=== PATIENT | female | born 1940 | race Caucasian/White ===

== ENCOUNTER → 2016-11-14 | Outpatient (CLI) | payer OTHER ==
[~2016-11-14] MED LIST: ATV1 PO; BCTCR/30 EXT; CALC0.5C17 PO; CALC200S6; CALCTAB7 PO; DNSIS60 SQ; GLUCTAB7 PO; HYDR-5688 PO; HYDR25TA4 PO; KRIL1CAP20 PO; MAGN400T24 PO; METO50TA16 PO; MINO100C22 PO; MULT-663 PO; POTA-327 PO; RED1CAP5 PO; RED600TA PO; RXC5 PO; [UNRECOGNIZED DRUG - CODE] PO
[2016-11-14 13:49] LABS: CALCIUM 9.9 mg/dl (8.5-10.1); CREATININE 0.63 mg/dl (0.60-1.20)
[2016-11-14 14:11] LABS: CALCIUM URINE 13.8 mg/dl
== END | disposition home or self-care (01) ==
LOC: C.LABMFLN 09:12
PROVIDERS: ATTEND Family Medicine
DX: E83.42 Hypomagnesemia (principal); M81.0 Age-related osteoporosis without current pathological fracture; E05.90 Thyrotoxicosis, unspecified without thyrotoxic crisis or storm; E04.2 Nontoxic multinodular goiter

== ENCOUNTER → 2016-12-18 | Outpatient (CLI) | payer OTHER ==
[~2016-12-18] MED LIST changes: +CALC0.5C PO; -CALC0.5C17 PO
[2016-12-18 13:58] LABS: ALT/SGPT 24 U/L (12-78); BLOOD UREA NITROGEN 17 mg/dl (7-18); CARBON DIOXIDE 27 mmol/L (21-32); CHLORIDE 105 mmol/L (98-107); CHOLESTEROL 229 mg/dl (0-200); CREATININE 0.67 mg/dl (0.60-1.20); GLUCOSE 121 mg/dl (70-99); MAGNESIUM 2.3 mg/dl (1.8-2.4); POTASSIUM 3.6 mmol/L (3.5-5.1); SODIUM 142 mmol/L (136-145); TRIGLYCERIDES 105 mg/dl (0-150); VERY LOW DENSITY LIPOPROT CALC 21 mg/dl
[2016-12-18 14:01] LABS: AST/SGOT 13 U/L (15-37); CHOLESTEROL/HDL RATIO 3.2; HDL CHOLESTEROL 71 mg/dl; LDL CHOLESTEROL CALCULATED 137 mg/dl
[2016-12-18 15:07] LABS: CALCIUM 9.6 mg/dl (8.5-10.1)
== END | disposition home or self-care (01) ==
LOC: C.LABMFLN 08:28
PROVIDERS: ATTEND Physician Assistant
DX: M85.80 Other specified disorders of bone density and structure, unspecified site (principal); I10 Essential (primary) hypertension; E78.00 Pure hypercholesterolemia, unspecified

== ENCOUNTER → 2017-01-14 | Outpatient (CLI) | payer OTHER ==
--- NOTE | 2017-01-14 12:29 | DIAGNOSTIC IMAGING REPORT ---
MRI LUMBAR SPINE W/O CONTRAST CLINICAL HISTORY: Lumbar spine pain. History disturbance. Retrolisthesis. TECHNIQUE: Sagittal and axial T1, T2 and STIR images were obtained. COMPARISON STUDY: Conventional radiographic study dated 03/23/2015 OBSERVATIONS: There are postsurgical changes of an L2-S1 pedicle screw posterior spinal fusion. There are postsurgical changes of discectomies and interbody fusions at the L3-4, and L4-5 levels. There are degenerative changes with endplate erosive disease at the T11-12 level. There is an L1 focal fatty rest/hemangioma. There are no areas of marrow replacement to indicate metastatic disease. L1-2: There is mild retrolisthesis of L1 on L2. There is a circumferential disc bulge present. There is mild spinal stenosis. L2-3: Postlaminectomy changes are present. There is artifact from pedicle screw fixation. There is no significant spinal or foraminal stenosis. L3-4: There are postsurgical changes of a discectomy and interbody fusion. There are postlaminectomy changes. There is no significant spinal or foraminal stenosis L4-5: There is a grade 1 spinal listhesis of L4 and L5. There are postsurgical changes of a discectomy and interbody fusion. There are postlaminectomy changes. There is no significant spinal or foraminal stenosis L5-S1: There is a mild circumferential disc bulge. There is no significant spinal or foraminal stenosis. The conus medullaris and cauda equina appear normal. IMPRESSION: 1. Extensive postsurgical changes as described above. There is a disc bulge and mild retrolisthesis of L1 on L2. This results in mild spinal stenosis. 2. No evidence of significant spinal stenosis at the L2-3 through L5-S1 levels 3. Advanced degenerative change with endplate erosive change the T11-T12 level. Sagittal images suggest a disc bulge at this level with minor secondary spinal canal narrowing Electronically signed by: Kun Caceers M.D. 01/14/2017 12:27 PM Dictated Date/Time: 01/14/2017 12:21 PM
--- NOTE | 2017-01-14 12:46 | DIAGNOSTIC IMAGING REPORT ---
THORACIC SPINE MRI HISTORY: Thoracic pain. TECHNIQUE: Multiplanar multisequence MRI of the thoracic spine was performed without the use of contrast. COMPARISON: None. FINDINGS: Mild dextroscoliosis of the thoracic spine. The alignment remains intact. There is severe disc space narrowing with partial fusion of the anterior T11-T12 level. Mild to moderate disc space narrowing seen within the mid to lower thoracic spine. The thoracic spinal cord demonstrates a normal signal intensity. No acute fractures within the thoracic spine. Paraspinal soft tissues are unremarkable. Small focal posterior bony projection at the T5 vertebral body which results in mild anterior cord deformity. There are few scattered small focal disc protrusions within the mid to lower thoracic spine without significant central canal narrowing. Some these this protrusions demonstrate minimal anterior cord deformity. Small broad-based posterior disc bulge at T10-11 resulting in mild central canal narrowing. No significant neural foraminal narrowing within the thoracic spine. There are 2 hypointense foci within the T8 vertebral body and within the left T8 transverse process which measure up to 1 cm. These favor bone islands in the absence of a known malignancy. Focal kyphotic deformity at the T11-T12 level with associated mild central canal narrowing. A few T2 hyperintense foci within the liver favor cysts. IMPRESSION: 1. No fracture or subluxation within the thoracic spine. 2. Partial fusion of the T11-T12 vertebral bodies which results in a focal kyphotic deformity at this location and mild central canal narrowing. 3. Mild to moderate degenerative disc disease as described above. Electronically signed by: Iván Thrasher M.D. 01/14/2017 12:45 PM Dictated Date/Time: 01/14/2017 12:34 PM
== END | disposition home or self-care (01) ==
LOC: C.MRIBC 10:30
PROVIDERS: ATTEND Orthopaedic Surgery Orthopaedic Surgery of the Spine
DX: M43.10 Spondylolisthesis, site unspecified (principal); M51.26 Other intervertebral disc displacement, lumbar region; M47.814 Spondylosis without myelopathy or radiculopathy, thoracic region; M81.0 Age-related osteoporosis without current pathological fracture; E05.90 Thyrotoxicosis, unspecified without thyrotoxic crisis or storm

== ENCOUNTER → 2017-01-14 | Outpatient (CLI) | payer OTHER ==
[2017-01-14 14:40] LABS: CALCIUM 9.4 mg/dl (8.5-10.1)
[2017-01-14 14:54] LABS: THYROID STIMULATING HORMONE 1.54 uIu/ml (0.300-4.500)
== END | disposition home or self-care (01) ==
LOC: C.LABMFLN 08:32
PROVIDERS: ATTEND Internal Medicine Endocrinology, Diabetes & Metabolism
DX: M81.0 Age-related osteoporosis without current pathological fracture (principal); E05.90 Thyrotoxicosis, unspecified without thyrotoxic crisis or storm

== ENCOUNTER → 2017-02-18 | Outpatient (CLI) | payer OTHER ==
[~2017-02-18] MED LIST changes: -ATV1 PO
[2017-02-18 15:05] LABS: THYROID STIMULATING HORMONE 3.85 uIu/ml (0.300-4.500)
== END | disposition home or self-care (01) ==
LOC: C.LABMFLN 09:18
PROVIDERS: ATTEND Internal Medicine Endocrinology, Diabetes & Metabolism
DX: M81.0 Age-related osteoporosis without current pathological fracture (principal); E05.90 Thyrotoxicosis, unspecified without thyrotoxic crisis or storm

== ENCOUNTER 2017-02-25 05:46 | Inpatient (IN) | payer OTHER ==
--- NOTE | 2017-02-04 12:00 | DIAGNOSTIC IMAGING REPORT ---
CHEST 2 VIEWS ROUTINE CLINICAL HISTORY: Preoperative evaluation. COMPARISON STUDY: Chest radiograph March 23, 2015. FINDINGS: Lumbar spine fusion hardware is partially imaged. There is no pneumothorax or pleural effusion. Linear left lung opacity favors atelectasis or scarring. There is no evidence of pulmonary edema. Cardiac size is at the upper limits of normal. IMPRESSION: No acute cardiopulmonary findings. Electronically signed by: Haresh Caro M.D. 02/04/2017 11:59 AM Dictated Date/Time: 02/04/2017 11:58 AM
[2017-02-04 12:10] LABS: BASO % 0.3 %; BASO ABS # 0.02 K/uL (0-0.2); COMPLETE YES; EOS % 2.3 %; HEMATOCRIT 41.5 % (37-47); IG% 0.4 %; LYMPH % 28.3 %; MEAN CELL VOLUME 88.9 fL (80-100); MEAN CORPUSCULAR HEMOGLOBIN 29.8 pg (25-34); MEAN CORPUSCULAR HGB CONC 33.5 g/dl (32-36); MEAN PLATELET VOLUME 10.8 fL (7.4-10.4); MONO % 11.5 %; NEUT % 57.2 %; PLATELET COUNT 305 K/uL (130-400); RED BLOOD COUNT 4.67 M/uL (4.2-5.4); WHITE BLOOD COUNT 7.07 K/uL (4.8-10.8)
[2017-02-04 12:25] LABS: CALCIUM 10.2 mg/dl (8.5-10.1)
[2017-02-04 12:26] LABS: BLOOD UREA NITROGEN 22 mg/dl (7-18); BUN/CREATININE RATIO 27.2 (10-20); CARBON DIOXIDE 28 mmol/L (21-32); CHLORIDE 103 mmol/L (98-107); CREATININE 0.79 mg/dl (0.60-1.20); GLUCOSE 94 mg/dl (70-99); POTASSIUM 3.8 mmol/L (3.5-5.1); SODIUM 141 mmol/L (136-145)
[2017-02-04 13:25] LABS: URINE APPEARANCE CLOUDY (CLEAR); URINE BILIRUBIN NEG (NEG); URINE COLOR YELLOW; URINE EPITHELIAL CELL AUTO >30 /lpf (0-5); URINE NITRITE NEG (NEG); URINE PH 7.5 (4.5-7.5); URINE SPECIFIC GRAVITY 1.018 (1.000-1.030); UROBILINOGEN NEG (NEG)
[2017-02-04 13:41] LABS: MANUAL MICROSCOPIC REQUIRED? NO; REVIEW REQ? NO
[2017-02-06 09:15] VITALS: BMI 32.0
[~2017-02-25] VITALS: Ht 152.4 cm; Wt 75.0 kg
[2017-02-25] VITALS (8 sets, daily range): BP systolic 96–177; BP diastolic 49–73; PULSE 46–66; TEMP 36.4–36.6; O2SAT 94–99; Ht 152.4 cm; Wt 75.0 kg
[~2017-02-25 05:46] MED LIST changes: -CALC0.5C PO; +CALC0.5C17 PO; -RXC5 PO
[2017-02-25] MEDS ORDERED: CEFAZOLIN 1000MG/55 ML D5W IV SCH (06:00)
[2017-02-25] MEDS ORDERED: LACTATED RINGER'S 1000ML 1,000 ML IV SCH (06:00)
[2017-02-25] MEDS ORDERED: LIDOCAINE HCL 2% 2 ML VIAL (20MG/ML) ONE (06:52)
[2017-02-25] MEDS ORDERED: FENTANYL CITRATE INJ 50 MCG/1 ML 2 ML VIAL ONE (06:52)
[2017-02-25] MEDS ORDERED: PROPOFOL IV EMULSION 10 MG/ML 20 ML VIAL IV ONE (06:52)
[2017-02-25] MEDS ORDERED: PHENYLEPHRINE HCL INJ 10 MG/ML VIAL ONE (06:53)
[2017-02-25] MEDS ORDERED: ROCURONIUM BROMIDE 10 MG/ML 5 ML VIAL ONE (06:53)
[2017-02-25] MEDS ORDERED: ONDANSETRON INJ 2 MG/ML 2 ML VIAL ONE (06:53)
[2017-02-25] MEDS ORDERED: GLYCOPYRROLATE INJ 0.2 MG/ML VIAL ONE (06:53)
[2017-02-25] MEDS ORDERED: BACITRACIN 50000 UNIT VIAL ONE (06:59)
[2017-02-25] MEDS ORDERED: SODIUM CHLORIDE 0.9% PF 50 ML VIAL ONE (06:59)
[2017-02-25] MEDS ORDERED: BUPIVACAINE/EPINEPHRINE 0.25% 1:200,000 30 ML VIAL ONE (07:00)
[2017-02-25] MEDS ORDERED: HYDROmorphone INJ 2 MG/ML SYR/VIAL ONE (07:01)
[2017-02-25] MEDS ORDERED: BUPIVACAINE/EPINEPHRINE 0.5% MPF 1:200,000 10 ML VIAL ONE (07:09)
[2017-02-25] MEDS ORDERED: BUPIVACAINE/EPINEPHRINE 0.5% MPF 1:200,000 30 ML VIAL ONE (07:19)
--- NOTE | 2017-02-25 07:26 | History & Physical Bridge Note ---
H&P Re-Evaluation Bridge Note: I have examined the patient, reviewed the History & Physical and in the interval since the performance of the History & Physical I have noted the following changes of clinical significance: No changes noted
--- NOTE | 2017-02-25 07:28 | History and Physical ---
History & Physical Date Feb 25, 2017. Chief Complaint back and leg pain History of Present Illness The patient is a 76 year old female with complaints of Past Medical/Surgical History Medical Problems: (1) Benign Hypertension (2) Right rotator cuff tear Additional History Hepatic Disease: No Endocrine Disorder: No Kidney Disease: No Hypertension: No Heart Disease: No Bleeding Tendencies: No Infectious Diseases: No Allergies Coded Allergies: Adhesives (Verified Allergy, Intermediate, pruritis, redness, rash, ) Influenza Vaccines (Verified Allergy, Unknown, per records , 02/25/17) NSAIDs (Verified Allergy, Unknown, porphyria, 02/25/17) Statins (Verified Adverse Reaction, Mild, MUSCLE ACHES,, 02/25/17) Home Medications Scheduled Calcitonin ([place]) (Calcitonin [place]), 1 DOSE NA QAM Calcitriol (Calcitriol), 1 CAP PO BID Calcium Carbonate-Vitamin D W/ (Caltrate 600 Plus), 1 TAB PO BID Denosumab (Prolia), 1 DOSE SQ u8mnbsgu Ciqvcaawnuy-Erbngimwgte-Eec C- (Glucosamine Chondroitin), 1 TAB PO BID Hydrochlorothiazide (Hctz), 25 MG PO QAM Krill Oil ([facility] [place]-3 Krill Oil 300 300 mg), 1 CAP PO BID Magnesium Oxide (Mag-Oxide), 400 MG PO BID Methimazole (Methimazole), 2 TAB PO QAM Metoprolol Tartrate (Lopressor) (Lopressor), 0.5 TAB PO BID Multiple Minerals W/ Vitamins (Citracal Plus), 2 TAB PO QAM Mupirocin 2% (Bactroban 2%), 1 APPLN EXT UD Red Yeast Rice Extract (Red Yeast Rice), 600 MG PO QPM Red Yeast Rice Extract (Red Yeast Rice), 1,200 MG PO QAM Scheduled PRN Hydrocodone/Acetaminophen 5MG/325MG ([place] 5MG/325MG), 2 TAB PO Q4H PRN for Pain Physical Examination Skin: warm/dry, no rash Eyes: normal inspection, EOMI, sclerae normal ENT: normal ENT inspection, pharynx normal Head: normocephalic, atraumatic Neck: supple, no adenopathy, trachea midline Respiratory/Chest: lungs clear, normal breath sounds, no respiratory distress Cardiovascular: regular rate, rhythm, no edema, no murmur Abdomen / GI: normal bowel sounds, non tender Back: normal inspection Extremities: normal inspection, normal range of motion Neurologic/Psych: no motor/sensory deficits, alert, normal reflexes, oriented x 3 Diagnosis spinal stenosis Plan of Treatment decompression L1-2, fusion T9-L2, removal inst. L2
[2017-02-25] MEDS ORDERED: ATROPINE SULFATE 0.1 MG/ML 5ML SYR IV PRN (08:30)
[2017-02-25] MEDS ORDERED: ONDANSETRON INJ 2 MG/ML 2 ML VIAL IV PRN ×2 (08:30→10:00)
[2017-02-25] MEDS ORDERED: EpHEDrine SULFATE INJ 50 MG/ML AMP IV PRN (08:30)
[2017-02-25] MEDS ORDERED: BUPIVACAINE/EPINEPHRINE 0.5% MPF 1:200,000 30 ML VIAL INJ ONE (08:30)
[2017-02-25] MEDS: SODIUM CHLORIDE 0.9% 1000ML 1,000 ML IV SCH ×2 (09:49→23:56)
[2017-02-25] MEDS ORDERED: SODIUM CHLORIDE 0.9% 1000ML 1,000 ML IV SCH (09:49)
--- NOTE | 2017-02-25 09:49 | [facility] Post Operative Brief Note ---
Immediate Operative Summary Operative Date Feb 25, 2017. Pre-Operative Diagnosis Spinal Stenosis Post-Operative Diagnosis Spinal Stenosis Procedure(s) Performed decomp fusion L1-[address] Calvin Hazardous Waste Technician Surgeon(s) Lisette Salomon PA-C Estimated Blood Loss 250 Findings stenosis Specimens none per surgeon
--- NOTE | 2017-02-25 09:53 | DIAGNOSTIC IMAGING REPORT ---
INTRAOPERATIVE RADIOGRAPHS CLINICAL HISTORY: L2 hardware removal. T9-L2 decompression and spinal fusion. Fluoroscopy time: 27 seconds. FINDINGS: 2 spot fluoroscopic views of the thoracolumbar junction are presented. There is evidence of multilevel laminectomy and posterior fusion identified. The exact levels cannot be determined on this examination. The orthopedic hardware is intact as imaged. IMPRESSION: Intraoperative images from spinal fusion at the thoracolumbar junction as above. See operative report for detailed findings. Electronically signed by: Carl Kramer M.D. 02/25/2017 9:52 AM Dictated Date/Time: 02/25/2017 9:50 AM
[2017-02-25] MEDS ORDERED: FLOSEAL HEMOSTATIC MATRIX 10ML TOP ONE (09:54)
[2017-02-25] MEDS ORDERED: ACETAMINOPHEN IV 100 ML IV PRN (10:00)
[2017-02-25] MEDS ORDERED: HYDROmorphone HCL 0.5MG/ML 50 ML CASSETTE IV PRN (10:00)
[2017-02-25] MEDS ORDERED: BISACODYL 10 MG SUPP PR PRN (10:00)
[2017-02-25] MEDS ORDERED: ALUMINUM/MAGNESIUM SUSP 30 ML UDC PO PRN (10:00)
[2017-02-25] MEDS ORDERED: DO NOT ADMINISTER PNEUMOCOCCAL VACCINE PRN ×2 (10:00)
[2017-02-25] MEDS ORDERED: DO NOT ADMINISTER FLU VACCINE PRN ×3 (10:00)
[2017-02-25] MEDS ORDERED: NALOXONE HCL 0.4 MG/1 ML VIAL/CARP IV PRN ×2 (10:00)
[2017-02-25] MEDS ORDERED: METOCLOPRAMIDE HCL INJ 5 MG/ML 2 ML VIAL IV PRN (10:00)
[2017-02-25] MEDS ORDERED: hydrOXYzine HCL 25 MG TAB PO PRN (10:00)
[2017-02-25] MEDS ORDERED: FAMOTIDINE 20 MG TAB PO PRN (10:00)
[2017-02-25] MEDS ORDERED: DC PCA PRN (10:00)
[2017-02-25] MEDS ORDERED: SOD PHOSPHATE/SOD BIPHOSPHATE ENEMA 132 ML BTL PR PRN (10:00)
[2017-02-25] MEDS ORDERED: LORAZEPAM INJ 0.5 MG in SYRINGE 0 ML IV PRN (10:00)
[2017-02-25] MEDS ORDERED: MAGNESIUM HYDROXIDE SUSP 30 ML UDC PO PRN (10:00)
[2017-02-25] MEDS ORDERED: LORAZEPAM 0.5 MG TAB PO PRN (10:00)
[2017-02-25] MEDS ORDERED: PROMETHAZINE HCL INJ 12.5 MG in SODIUM CHLORIDE 0.9% 50ML 50 ML IV PRN (10:00)
[2017-02-25] MEDS ORDERED: ACETAMINOPHEN 500 MG TAB PO PRN (10:00)
[2017-02-25] MEDS ORDERED: HYDROmorphone HCL 0.5MG/ML 50 ML CASSETTE ONE (10:13)
[2017-02-25] MEDS: FENTANYL CITRATE INJ 50 MCG/1 ML 2 ML VIAL IV PRN ×4 (10:14→10:30)
[2017-02-25] MEDS: HYDROmorphone INJ 1 MG/ML SYR IV PRN ×4 (10:27→10:45)
--- NOTE | 2017-02-25 10:32 | OPERATIVE REPORT ---
DATE OF OPERATION: 02/25/2017 PREOPERATIVE DIAGNOSIS: Spinal stenosis. POSTOPERATIVE DIAGNOSIS: Same. PROCEDURE PERFORMED: 1. Removal of posterior instrumentation, L2. 2. Exploration of fusion L2-3. 3. Lumbar decompression, medial facetectomies, foraminotomies T12, L1, L1-2. 4. Posterior spinal fusion, T12-L2. 5. Posterior segmental instrumentation using Medicrea rods and screws, T12-L1. 6. Interbody fusion, L1-2. 7. Placement of PEEK cage, 10 x 22 mm, at L1-2. 8. Placement of locally harvested morselized autograft posterior gutters. 9. Placement of Infuse collagen sponge combined with Mastergraft in posterior gutters and DBM in the interbody space. SURGEON: Dr. Mauricio Calvin. SNOW RANGER: Lisette Salomon PA-C. Due to the complex nature of the procedure, the entire surgery was performed with the teacher assistant of JOEL Hahn. The rehab assistant, under direct supervision, was involved in the actual performance of all aspects of the surgical procedure including hemostasis, tissue retraction and incision, instrument management, patient positioning, and wound closure. ANESTHESIA: General. DISPOSITION: The patient awakened and taken to PACU in stable condition. HISTORY OF PATIENT'S PROBLEMS: This is a 76-year-old female, who presents with the above-mentioned diagnosis after failing an extensive course of nonoperative care, elected to undergo the above-mentioned procedure. Risks, benefits, pros, cons, and alternatives were outlined in detail preoperatively. DESCRIPTION OF PROCEDURE: The patient was met with preoperatively, the case discussed and all questions were addressed. At that point, the patient was taken back to the operative suite and after undergoing successful general endotracheal intubation by the department of anesthesia, was placed in prone position on Ferny table atop a Kurtis frame. All bony prominences were well padded and the eyes were inspected to ensure there was no external pressure placed upon them. At this point, the lumbar spine was prepped and draped in normal sterile fashion. Sharp dissection, with the assistance of Bovie cautery, performed down to and exposing the lamina and transverse processes of T12, L1, L2 and L3. I then proceeded to remove the hardware at L2, exploring the fusion mass at L2-3, noting a significant bone graft in the posterior gutters. I then performed a complete laminectomy of L1, partial laminectomy of T12, addressing severe lateral recess stenosis as well as bilateral neural foraminal stenosis at L1-2. This did require bilateral facetectomies to complete the decompression. After this was complete, pedicle screws were placed in T12, L1 bilaterally with the assistance of fluoroscopy and through a transforaminal approach on the left, a complete discectomy of L1-2 was performed, endplates curetted to subcortical bleeding bone and a 10 x 22 mm PEEK cage filled with DBM tapped in position. Appropriate size rods were then placed. We did use barrel connectors to connect to the new rods with the previously placed rods. The rods were then locked into position bilaterally and transverse processes and lamina of T12, L1, L2 and L3 were burred to subcortical bleeding bone. Infuse collagen sponge combined with Mastergraft and locally harvested morselized autograft was placed in the posterior gutters. A 15 round SYLWIA drain was placed. The incision was closed with 1-0 Vicryl in the fascia, 2-0 Vicryl subcutaneously, 4-0 Monocryl for final skin closure. Steri-Strips and sterile dressing placed. The patient was awakened and taken to PACU in stable condition. I attest to the content of the Intraoperative Record and any orders documented therein. Any exception s are noted below.
[2017-02-25] MEDS ORDERED: HydrALAZINE HCL 20 MG/ML VIAL ONE (10:48)
[2017-02-25] MEDS ORDERED: HydrALAZINE HCL 20 MG/ML VIAL IV. STA (10:53)
--- NOTE | 2017-02-25 11:13 | Anesthesiology Progress Note ---
Anesthesia Post Op Note Date & Time Feb 25, 2017 at 11:13 Vital Signs Pain Intensity: 5 Vital Signs Past 12 Hours Date Time Temp Pulse Resp B/P (MAP) Pulse Ox O2 Delivery O2 Flow Rate FiO2 02/25/17 11:05 56 16 164/67 97 Nasal Cannula 2 02/25/17 10:55 56 16 158/61 100 Mask 2 02/25/17 10:45 56 16 184/77 100 Mask 2 02/25/17 10:35 56 16 184/77 100 Mask 2 02/25/17 10:25 56 16 195/76 100 Mask 10 02/25/17 10:15 56 15 189/82 100 Mask 10 02/25/17 10:05 36.1 54 12 214/78 100 Mask 10 02/25/17 06:45 36.6 46 20 177/73 97 Room Air Notes Mental Status: alert / awake / arousable, participated in evaluation Pt Amnestic to Procedure: Yes Nausea / Vomiting: adequately controlled Pain: adequately controlled Airway Patency, RR, SpO2: stable & adequate BP & HR: stable & adequate Hydration State: stable & adequate Anesthetic Complications: no major complications apparent
[2017-02-25] MEDS: CEFAZOLIN IV 2,000 MG in DEXTROSE 5% 50ML 50 ML IV SCH ×2 (15:48→23:56)
[2017-02-25] MEDS: DEXAMETHASONE INJ 6 MG in SYRINGE 0 ML IV SCH ×2 (15:48→23:57)
[2017-02-25] MEDS: CALCIUM 600MG + VIT D 400 IU TAB PO SCH (21:07)
[2017-02-25] MEDS: METOPROLOL TARTRATE 50 MG TAB PO SCH (21:07)
[2017-02-25] MEDS: MAGNESIUM OXIDE 400 MG TAB PO SCH (21:07)
[2017-02-25] MEDS: DOCUSATE SODIUM/SENNA 50/8.6MG TAB PO SCH (21:39)
[2017-02-26 03:40] VITALS: BP 120/59; PULSE 56; TEMP 36.5; O2SAT 97
[2017-02-26] MEDS ORDERED: NURSING VERBAL MED ORDER ONE (05:45)
[2017-02-26] MEDS ORDERED: HYDROmorphone INJ 0.5 MG/0.5 ML SYR IV PRN (06:01)
[2017-02-26 06:24] LABS: COMPLETE YES; HEMATOCRIT 36.6 % (37-47); IG% 0.5 %; LYMPH % 6.5 %; LYMPH ABS # 0.83 K/uL (1.2-3.4); MEAN CELL VOLUME 89.1 fL (80-100); MEAN CORPUSCULAR HEMOGLOBIN 28.7 pg (25-34); MEAN CORPUSCULAR HGB CONC 32.2 g/dl (32-36); MONO % 4.2 %; NEUT % 88.8 %; PLATELET COUNT 280 K/uL (130-400); RED BLOOD COUNT 4.11 M/uL (4.2-5.4); WHITE BLOOD COUNT 12.73 K/uL (4.8-10.8)
[2017-02-26 06:51] VITALS: BP 135/64; PULSE 48; TEMP 36.6; O2SAT 95
[2017-02-26 07:05] LABS: BUN/CREATININE RATIO 17.9 (10-20); CALCIUM 8.3 mg/dl (8.5-10.1); CREATININE 0.67 mg/dl (0.60-1.20); POTASSIUM 3.2 mmol/L (3.5-5.1)
[2017-02-26] MEDS: DEXAMETHASONE INJ 6 MG in SYRINGE 0 ML IV SCH (07:32)
[2017-02-26] MEDS: OXYCODONE HCL IR 5 MG TAB (IMMEDIATE RELEASE) PO PRN ×3 (07:32→16:06)
[2017-02-26] MEDS ORDERED: RXC5 PO (07:42)
--- NOTE | 2017-02-26 07:42 | Discharge Instructions ---
Discharge Instructions Date of Service Feb 26, 2017. Admission Reason for Admission: Spinal Stenosis Discharge Discharge Diagnosis / Problem: stenosis Discharge Goals Goal(s): Improve function Activity Recommendations Activity Limitations: per Instructions/Follow-up section . Instructions / Follow-Up Instructions / Follow-Up ACTIVITY RECOMMENDATIONS: SELF CARE INSTRUCTIONS AFTER THORACIC/LUMBAR FUSIONS 1. You may walk to your tolerance. It is good exercise for your legs and back. Expect some back and intermittent leg aches and pains. 2. You may perform "counter-top" level activities (make a sandwich, hari with a project, etc.). 3. No bending or lifting of more than 10 pounds or back twisting of any nature (roll like a log when turning in bed). 4. You may ride in a car for 20-30 minutes at a time. No driving until after your first visit with your doctor. 5. Frequent changes of position and restricting sitting to 30 minutes at a time will help limit the amount of back spasms and stiffness you may experience. 6. You may discontinue the use of ambulatory aids (cane, crutches, etc.) once your strength and confidence allow. 7. You may tile inspector the shower and let water strike your incision when you arrive home at least once daily. Do not take a tub bath, sit in a hot tub or go into a swimming pool until after your first recheck in the office. SPECIAL CARE INSTRUCTIONS: VERY IMPORTANT TO READ AND REVIEW A. Your surgical incision has been closed with a cosmetic suture under the skin that will dissolve in about 6 weeks. In 14 days, you can use a pair of clean scissors and cut the suture that is left outside of the skin at the ends of your incision. 1. The small skin tapes can be removed 7 days after surgery if they have not fallen off by that point. 2. You may keep the wound open to air as much as possible to promote healing after post-op day number 5 unless told otherwise by your doctor. 3. If you think the wound looks like it is becoming infected (redness or worsening drainage) and/or you are experiencing fever, chill or worsening back pain and muscle spasms, contact the office so that we may evaluate you as soon as possible. B. Complications are uncommon, but please contact us if you have any signs or symptoms of: 1. wound infection (fever higher than 102.5 degrees F, redness, separation of wound, drainage, or increasing pain from the incision) 2. blood clots in legs (pain, swelling, redness and warmth in legs) 3. urinary tract infection (fever higher than 102.5 degrees F, burning upon urination or increased frequency of urination) 4. nerve problems (inability to walk on your toes or heels, numbness, loss of bowel or bladder control) 5. any other symptoms that concern you C. Please call the office at if you have any concerns or questions about your operation or recovery. D. No smoking! Smoking drastically decreases the chance of a solid fusion. E. Do not take any anti-inflammatory medications (Indocin, Advil, Motrin, Aspirin, Naprosyn, etc.) as these may inhibit the chance of a solid fusion. Tylenol is okay to take for pain. MANAGING PAIN AFTER SPINAL SURGERY 1. Narcotic medication is intended for short-term use and will be provided for surgical pain. Surgical pain usually lasts for a period of 4-6 weeks. Narcotic medication includes Percocet, Vicodin, Darvocet, Tylenol #3 or Lortab. 2. Longer-term pain is more appropriately treated with non-narcotic medication such as Tylenol ES. 3. Muscle spasm is not appropriately treated with narcotics. Muscle relaxers such as Soma, Flexeril or Skelaxin can be used along with Tylenol ES. 4. Remember that we all live with some "aches and pains". This is not unusual or uncommon after an injury or as we get older. a. Back pain is expected and may include muscle spasms for 4 to 6 weeks after surgery. The pain should gradually improve. If the pain worsens for no apparent reason, please contact the office. b. Intermittent leg pain may also be experienced and should not be concerned about unless it worsens for no apparent reason. If so, please contact the office. 5. We will provide appropriate medication within the normal guidelines of their prescribed use. We will also be very cautious and aware of potential abuse and extended duration of patients' medication needs. a. Pain medications are for your comfort and to assist with sleep and rest so that the tissue can heal. They are not provided in order to return to normal activity and should not be used through the day. To do so or worsening pain at night can result from ongoing tissue damage and development of tolerance to the prescribed medicine. 6. Please allow 2-3 days to process refills. Prescriptions will not be mailed but must be picked up at the office. FOLLOW UP VISIT: Keep your scheduled follow-up appointment. Any questions, please call the office at . Current Hospital Diet Patient's current hospital diet: Regular Diet Discharge Diet Recommended Diet: Regular Diet Procedures Procedures Performed: L1-L2 Lumbar Laminectomy, Decompression; Pedicle Screw Fixation; Placement of Interbody Cage; T9-L2 Posterolateral Fusion; Application of Allograft; Bone Morphogenetic Protein; L2 Hardware Removal Pending Studies Studies pending at discharge: no Laboratory Results Lipid Panel Test 12/18/16 08:17 Range/Units Triglycerides Level 105 0-150 mg/dl Cholesterol Level 229 H 0-200 mg/dl HDL Cholesterol 71 mg/dl Cholesterol/HDL Ratio 3.2 LDL Cholesterol, Calculated 137 mg/dl Medical Emergencies . Who to Call and When: Medical Emergencies: If at any time you feel your situation is an emergency, please call 911 immediately. . Non-Emergent Contact Non-Emergency issues call your: Primary Care Provider . "Provider Documentation" section prepared by Mauricio Calvin. . VTE Core Measure Inpt VTE Proph given/why not?: Gopal Crews, ANNA's
[2017-02-26] MEDS: HYDROCHLOROTHIAZIDE 25 MG TAB PO SCH (08:36)
[2017-02-26] MEDS: METHIMAZOLE 5 MG TAB PO SCH (08:36)
[2017-02-26] MEDS: METOPROLOL TARTRATE 50 MG TAB PO SCH ×2 (08:37→20:53)
[2017-02-26] MEDS: MAGNESIUM OXIDE 400 MG TAB PO SCH ×2 (08:37→20:53)
[2017-02-26] MEDS: CALCIUM 600MG + VIT D 400 IU TAB PO SCH ×2 (08:37→20:53)
--- NOTE | 2017-02-26 09:02 | Anesthesiology Progress Note ---
Anesthesia Post Op Note Date & Time Feb 26, 2017 at 09:02 Vital Signs Pain Intensity: 9.0 Vital Signs Past 12 Hours Date Time Temp Pulse Resp B/P (MAP) Pulse Ox O2 Delivery O2 Flow Rate FiO2 02/26/17 07:30 Room Air 02/26/17 06:51 36.6 48 16 135/64 (87) 95 Room Air 02/26/17 03:40 36.5 56 16 120/59 (79) 97 Room Air 02/25/17 23:30 Room Air 02/25/17 23:30 36.6 66 16 123/69 (87) 96 Room Air Notes Mental Status: alert / awake / arousable, participated in evaluation Anesthetic Complications: no major complications apparent
[2017-02-26] MEDS: CALCITONIN SALMON NA 200 IU/AC 3.7 ML BTL SCH (09:23)
[2017-02-26 10:26] VITALS: BP 144/77; PULSE 64; O2SAT 98
[2017-02-26 12:24] VITALS: BP 144/69; PULSE 55; O2SAT 96
--- NOTE | 2017-02-26 14:51 | PROGRESS NOTE ---
DATE: 02/26/2017 SUBJECTIVE: Postop day 1. Back pain controlled. Leg pain improved. Vital signs stable. T-max 36.6. SYLWIA drained 160 mL today. Hematocrit this a.m. is 36.6. PHYSICAL EXAMINATION: The patient is comfortable, has good strength to testing. ASSESSMENT: Status post thoracolumbar fusion. PLAN: At this time, will continue physical therapy, advance her bowel regimen, hopefully home in the next few days.
[2017-02-26 20:40] VITALS: BP 122/61; PULSE 72
[2017-02-26] MEDS: DOCUSATE SODIUM/SENNA 50/8.6MG TAB PO SCH (20:53)
[2017-02-26 22:57] VITALS: BP 118/62; PULSE 58; TEMP 36.6; O2SAT 94
[2017-02-27] MEDS: OXYCODONE HCL IR 5 MG TAB (IMMEDIATE RELEASE) PO PRN ×3 (05:07→18:14)
[2017-02-27] MEDS ORDERED: POLYETHYLENE (MIRALAX) 17 GM PACK PO SCH (06:00)
[2017-02-27 07:17] VITALS: BP 112/64; PULSE 54; TEMP 36.4; O2SAT 98
[2017-02-27] MEDS: CALCITONIN SALMON NA 200 IU/AC 3.7 ML BTL SCH (08:49)
[2017-02-27] MEDS: MAGNESIUM OXIDE 400 MG TAB PO SCH ×2 (08:49→20:48)
[2017-02-27] MEDS: METHIMAZOLE 5 MG TAB PO SCH (08:50)
[2017-02-27] MEDS: CALCIUM 600MG + VIT D 400 IU TAB PO SCH ×2 (08:50→20:48)
[2017-02-27] MEDS ORDERED: POTASSIUM CHLORIDE PWD 20 MEQ PACK PO ONE (10:45)
--- NOTE | 2017-02-27 11:25 | INTERNAL MEDICINE CONSULTATION ---
DATE OF CONSULTATION: 02/27/2017 REASON FOR CONSULTATION: Medical co-care/hypokalemia. HISTORY OF PRESENT ILLNESS: The patient is a 76-year-old pleasant female with past medical history of hypertension and hyperthyroidism, who presented to the hospital for an elective L1/L2 lumbar laminectomy and decompression. Done on February 25, procedure went uneventful. She received pedicle screws fixation, placement of interbody cage T9 to L2, fusion application of allograft bone morphogenic protein and the L2 hardware removal. The patient was doing well until day 1 postoperative, when her potassium slightly dropped to 3.2. We were consulted to manage the patients's electrolytes and the outpatient medications. PAST MEDICAL HISTORY: As mentioned in HPI plus osteoporosis. FAMILY HISTORY: Positive for heart disease. SOCIAL HISTORY: Does not smoke or drink alcohol. PAST SURGICAL HISTORY: 1. Rotator cuff tear. 2. Previous surgery on her back. ALLERGIES: ADHESIVE BAND/INFLUENZA/NONSTEROIDAL ANTI-INFLAMMATORY DRUGS/STATIN. HOME MEDICATIONS: 1. Calcitonin. 2. Calcitriol. 3. Calcium carbonate. 4. Denosumab. 5. Glucosamine chondroitin. 6. Hydrochlorothiazide. 7. Magnesium oxide. 8. Methimazole 9. Metoprolol. 10. Multiple vitamins. 11. Vicodin p.r.n. pain. PHYSICAL EXAMINATION: VITAL SIGNS: Temperature 36.4, heart rate is 54, respirations 15, blood pressure 112/64, saturation 98% on room air. HEENT: No jaundice. No pallor. wet mucous membranes. NECK: Supple. HEART: S1, S2 normal. No gallop, rub or murmur. LUNGS: Clear to auscultation bilaterally. Normal chest wall expansion. ABDOMEN: Soft, nontender, nondistended. NEUROLOGIC: Awake, alert, oriented to time, place, and person. Moves all extremities. Sensation intact. Cranial nerves II-XII appear to be intact. SKIN: No rash or erythema. PSYCHIATRIC: Normal affect. LABORATORY DATA: Sodium 139, potassium 3.2, creatinine is 0.6, white blood cell count 12.7, hemoglobin 11.8 and platelet count is 280. ASSESSMENT: 1. Hypertension. 2. Hypokalemia. 3. Hyperthyroidism. 4. Osteoporosis. 5. Chronic back pain/degenerative joint disease status post laminectomy/decompression/fusion. PLAN: 1. We will obtain a stat BMP now to see where her potassium is. Her labs mentioned above as for yesterday. 2. We will start her on potassium 20 mEq p.o. daily. 3. Continue her home meds including hydrochlorothiazide at this point. 4. DVT prophylaxis as per primary team, but will add SCD boots. 5. Continue home medications as appropriate. 6. Obtain labs for the morning. 7. The patient is medically stable for discharge on potassium supplements from our perspective. We will follow the patient on the p.r.n. Please call us if you need any help or if there is any question. SUNDEEP
[2017-02-27 11:46] LABS: BUN/CREATININE RATIO 22.7 (10-20); CALCIUM 9.4 mg/dl (8.5-10.1); CREATININE 0.73 mg/dl (0.60-1.20); POTASSIUM 2.9 mmol/L (3.5-5.1)
--- NOTE | 2017-02-27 11:54 | PROGRESS NOTE ---
DATE: 02/27/2017 SUBJECTIVE: Postop day #2, complaining of generalized aches and pains but comfortable. Vital signs stable. T-max 36.4. SYLWIA drained 45 mL. OBJECTIVE: On exam, she has good strength to testing and is comfortable. ASSESSMENT: Status post thoracolumbar fusion. PLAN: At this time, will continue physical therapy, advance her bowel regimen and hopefully discharge home this weekend with home health. She is unable to tolerate NSAIDs.
[2017-02-27 12:39] VITALS: BP 147/83; PULSE 72
[2017-02-27] MEDS: HYDROCHLOROTHIAZIDE 25 MG TAB PO SCH (12:42)
[2017-02-27] MEDS: METOPROLOL TARTRATE 50 MG TAB PO SCH ×2 (12:42→20:49)
[2017-02-27 14:54] VITALS: BP 148/69; PULSE 66; TEMP 36.8; O2SAT 95
[2017-02-27 20:47] VITALS: BP 120/66; PULSE 64
[2017-02-27] MEDS: DOCUSATE SODIUM/SENNA 50/8.6MG TAB PO SCH (20:48)
[2017-02-27 23:10] VITALS: BP 110/58; PULSE 56; TEMP 36.9; O2SAT 95
[2017-02-28 05:55] LABS: BASO % 0.1 %; BASO ABS # 0.01 K/uL (0-0.2); COMPLETE YES; EOS % 0.2 %; HEMATOCRIT 32.8 % (37-47); IG% 0.6 %; LYMPH % 18.7 %; LYMPH ABS # 2.35 K/uL (1.2-3.4); MEAN CELL VOLUME 88.6 fL (80-100); MEAN CORPUSCULAR HEMOGLOBIN 29.5 pg (25-34); MEAN CORPUSCULAR HGB CONC 33.2 g/dl (32-36); MEAN PLATELET VOLUME 10.1 fL (7.4-10.4); MONO % 11.1 %; NEUT % 69.3 %; PLATELET COUNT 279 K/uL (130-400); WHITE BLOOD COUNT 12.59 K/uL (4.8-10.8)
[2017-02-28] MEDS: OXYCODONE HCL IR 5 MG TAB (IMMEDIATE RELEASE) PO PRN (06:24)
[2017-02-28 06:27] LABS: BUN/CREATININE RATIO 22.4 (10-20); CALCIUM 9.2 mg/dl (8.5-10.1); CREATININE 0.59 mg/dl (0.60-1.20); MAGNESIUM 2.2 mg/dl (1.8-2.4); POTASSIUM 3.2 mmol/L (3.5-5.1)
[2017-02-28 06:30] LABS: ALB/GLOB RATIO 0.9 (0.9-2); PHOSPHORUS 1.7 mg/dl (2.5-4.9)
[2017-02-28] MEDS ORDERED: NURSING VERBAL MED ORDER ONE (07:45)
[2017-02-28 08:02] VITALS: BP 143/83; PULSE 73; TEMP 36.8; O2SAT 95
[2017-02-28] MEDS ORDERED: POTASSIUM CHLORIDE PWD 20 MEQ PACK PO ONE (08:30)
[2017-02-28 08:53] VITALS: BP 152/84; PULSE 66
[2017-02-28] MEDS: METHIMAZOLE 5 MG TAB PO SCH (08:55)
[2017-02-28] MEDS: CALCIUM 600MG + VIT D 400 IU TAB PO SCH (08:55)
[2017-02-28] MEDS: METOPROLOL TARTRATE 50 MG TAB PO SCH (08:56)
[2017-02-28] MEDS: MAGNESIUM OXIDE 400 MG TAB PO SCH (08:56)
[2017-02-28] MEDS: CALCITONIN SALMON NA 200 IU/AC 3.7 ML BTL SCH (08:57)
[2017-02-28] MEDS ORDERED: POTASSIUM CITRATE 10 MEQ TAB PO SCH (09:00)
[2017-02-28] MEDS ORDERED: POTASSIUM CHLORIDE 10 MEQ TABCR PO ONE (09:30)
[2017-02-28 10:58] VITALS: BP 152/84; PULSE 66; TEMP 36.8; O2SAT 95
--- NOTE | 2017-02-28 13:43 | Progress Note ---
Progress Note Date of Service Feb 28, 2017. Progress Note Chart reviewed this AM but I did not see the patient before she was discharged today. I recommended holding HCTZ today and gave a total of KCl 60 meq po x 1 today. Her preop K+ was normal so she should be able to return to taking it daily a t home tomorrow after she resumes her normal po intake and home routine. Should have follow up labs in future.
--- NOTE | 2017-03-09 10:17 | Discharge Summary ---
Orthopedic Discharge Summary Admission Date/Reason Feb 25, 2017 at 07:30 Spinal Stenosis. Discharge Date/Disposition Feb 28, 2017 Home Diagnosis Principal Diagnosis: spinal stenosis Procedure(s) Performed thoracolumbar fusion Medication Reconciliation New Medications: Oxycodone HCl (Oxycodone HCl) 5 Mg Tab 5-10 MG PO Q4H PRN for Moderate - severe pain for 30 Days, #60 TAB Continued Medications: Calcitonin ([place]) (Calcitonin [place]) 200 Unit/Act Spr 1 DOSE NA QAM every day only one nostril - one day right side one day left side Calcitriol (Calcitriol) 0.5 Mcg Cap 1 CAP PO BID for 90 Days, #180 CAP 3 Refills Calcium Carbonate-Vitamin D W/ (Caltrate 600 Plus) 1 Tab Tab 1 TAB PO BID, TAB Denosumab (Prolia) 60 Mg/1 Ml Inj 1 DOSE SQ g3osxwka due March 13 Sydsuqbdouy-Uzxqtftbbae-Tkb C- (Glucosamine Chondroitin) 1 Tab Tab 1 TAB PO BID Hydrochlorothiazide (Hctz) 25 Mg Tab 25 MG PO QAM, TAB Hydrocodone/Acetaminophen 5MG/325MG ([place] 5MG/325MG) Tab 2 TAB PO Q4H PRN for Pain, TAB Krill Oil ([facility]-3 Krill Oil 300 300 mg) 1 Cap Cap 1 CAP PO BID Magnesium Oxide (Mag-Oxide) 400 Mg Tab 400 MG PO BID Methimazole (Methimazole) 5 Mg Tab 2 TAB PO QAM Metoprolol Tartrate (Lopressor) (Lopressor) 50 Mg Tab 0.5 TAB PO BID, TAB Multiple Minerals W/ Vitamins (Citracal Plus) 1 Tab Tab 2 TAB PO QAM Mupirocin 2% (Bactroban 2%) 30 Gm Cr 1 APPLN EXT UD, TUBE Red Yeast Rice Extract (Red Yeast Rice) 300 Mg Cap 600 MG PO QPM Red Yeast Rice Extract (Red Yeast Rice) 600 Mg Tab 1200 MG PO QAM Admission Physical Exam As per Admitting History & Physical. Discharge Instructions Please refer to the electronic Patient Visit Report (Discharge Instructions) for additional information.
== END 2017-02-28 12:25 | disposition home health service (06) | DRG 460 ==
LOC: C.ACU 05:46 → C.3E 07:30 → ENRESERV 11:18
PROVIDERS: ADMIT Orthopaedic Surgery Orthopaedic Surgery of the Spine; ATTEND Orthopaedic Surgery Orthopaedic Surgery of the Spine
PROC: 0ST20ZZ Resection of Lumbar Vertebral Disc, Open Approach (ICD-10-PCS; principal; 2017-02-25 07:45)
PROC: 0SG00AJ Fusion of Lumbar Vertebral Joint with Interbody Fusion Device, Posterior Approach, Anterior Column, Open Approach (ICD-10-PCS; principal; 2017-02-25 07:45)
PROC: 0SP004Z Removal of Internal Fixation Device from Lumbar Vertebral Joint, Open Approach (ICD-10-PCS; principal; 2017-02-25 07:45)
PROC: 0SG0071 Fusion of Lumbar Vertebral Joint with Autologous Tissue Substitute, Posterior Approach, Posterior Column, Open Approach (ICD-10-PCS; principal; 2017-02-25 07:45)
DX: M48.06 Spinal stenosis, lumbar region (principal); I10 Essential (primary) hypertension; E03.9 Hypothyroidism, unspecified; E87.6 Hypokalemia; M81.0 Age-related osteoporosis without current pathological fracture

== ENCOUNTER → 2017-03-05 | Outpatient (CLI) | payer OTHER ==
[~2017-03-05] MED LIST changes: -MINO100C22 PO; -POTA-327 PO; +RXC5 PO
[2017-03-05 13:12] LABS: HEMATOCRIT 33.9 % (37-47); MEAN CELL VOLUME 89.2 fL (80-100); MEAN CORPUSCULAR HGB CONC 33.6 g/dl (32-36); PLATELET COUNT 394 K/uL (130-400); WHITE BLOOD COUNT 8.84 K/uL (4.8-10.8)
--- NOTE | 2017-03-09 15:15 | CODING QUERY NO DIAGNOSIS ---
Valid Physician Order Needed A valid physician order must be submitted in order to properly bill for the service(s) provided, including date of service(s), valid diagnosis, and physician signature. If these tests are done on a recurring basis the original physican order must be submitted in order to code and bill for the service(s) provided. Please fax us the original, signed physician order so that we may expedite billing to [phone] DOS 03/05/2017 * CBC W/O DIFF * POTASSIUM Thank you Urvashi [facility] Information Management
== END | disposition home or self-care (01) ==
LOC: C.LABSPEC 12:59
PROVIDERS: ATTEND Family Medicine
DX: M48.06 Spinal stenosis, lumbar region (principal); M47.01 Anterior spinal artery compression syndromes; Z47.89 Encounter for other orthopedic aftercare

== ENCOUNTER → 2017-03-23 | Outpatient (CLI) | payer OTHER ==
[2017-03-23 13:44] LABS: BASO % 0.3 %; BASO ABS # 0.02 K/uL (0-0.2); COMPLETE YES; HEMATOCRIT 39.9 % (37-47); IG% 0.4 %; LYMPH % 25.2 %; MEAN CELL VOLUME 89.5 fL (80-100); MEAN CORPUSCULAR HEMOGLOBIN 29.1 pg (25-34); MEAN CORPUSCULAR HGB CONC 32.6 g/dl (32-36); MEAN PLATELET VOLUME 9.8 fL (7.4-10.4); MONO % 11.1 %; PLATELET COUNT 432 K/uL (130-400); RED BLOOD COUNT 4.46 M/uL (4.2-5.4); WHITE BLOOD COUNT 7.54 K/uL (4.8-10.8)
[2017-03-23 13:47] LABS: BLOOD UREA NITROGEN 19 mg/dl (7-18); BUN/CREATININE RATIO 26.6 (10-20); CALCIUM 9.9 mg/dl (8.5-10.1); CARBON DIOXIDE 27 mmol/L (21-32); CHLORIDE 104 mmol/L (98-107); CREATININE 0.71 mg/dl (0.60-1.20); GLUCOSE 115 mg/dl (70-99); MAGNESIUM 2.4 mg/dl (1.8-2.4); POTASSIUM 3.9 mmol/L (3.5-5.1); SODIUM 138 mmol/L (136-145)
== END | disposition home or self-care (01) ==
LOC: C.LABMFLN 09:43
PROVIDERS: ATTEND Family Medicine
DX: I10 Essential (primary) hypertension (principal); E83.42 Hypomagnesemia; M54.9 Dorsalgia, unspecified; M81.0 Age-related osteoporosis without current pathological fracture

== ENCOUNTER → 2017-05-15 | Outpatient (CLI) | payer OTHER ==
[2017-05-15 14:03] LABS: ALT/SGPT 22 U/L (12-78); AST/SGOT 15 U/L (15-37); BLOOD UREA NITROGEN 23 mg/dl (7-18); CALCIUM 10.1 mg/dl (8.5-10.1); CARBON DIOXIDE 28 mmol/L (21-32); CHLORIDE 106 mmol/L (98-107); CHOLESTEROL 253 mg/dl (0-200); CREATININE 0.75 mg/dl (0.60-1.20); GLUCOSE 117 mg/dl (70-99); POTASSIUM 3.5 mmol/L (3.5-5.1); SODIUM 141 mmol/L (136-145); TRIGLYCERIDES 115 mg/dl (0-150); VERY LOW DENSITY LIPOPROT CALC 23 mg/dl
[2017-05-15 14:05] LABS: CHOLESTEROL/HDL RATIO 3.4; HDL CHOLESTEROL 74 mg/dl; LDL CHOLESTEROL CALCULATED 156 mg/dl
== END | disposition home or self-care (01) ==
LOC: C.LABMFLN 09:41
PROVIDERS: ATTEND Family Medicine
DX: I10 Essential (primary) hypertension (principal); E78.00 Pure hypercholesterolemia, unspecified

== ENCOUNTER → 2017-05-22 | Outpatient (CLI) | payer OTHER ==
[2017-05-22 13:40] LABS: CALCIUM 10.7 mg/dl (8.5-10.1)
[2017-05-22 13:54] LABS: THYROID STIMULATING HORMONE 3.04 uIu/ml (0.300-4.500)
== END | disposition home or self-care (01) ==
LOC: C.LABMFLN 10:03
PROVIDERS: ATTEND Internal Medicine Endocrinology, Diabetes & Metabolism
DX: M81.0 Age-related osteoporosis without current pathological fracture (principal); E05.90 Thyrotoxicosis, unspecified without thyrotoxic crisis or storm

== ENCOUNTER → 2017-07-15 | Outpatient (CLI) | payer OTHER ==
[~2017-07-15] MED LIST changes: +CALC0.5C PO; -CALC0.5C17 PO
[2017-07-15 13:12] LABS: CALCIUM 9.6 mg/dl (8.5-10.1)
[2017-07-15 13:27] LABS: THYROID STIMULATING HORMONE 2.42 uIu/ml (0.300-4.500)
== END | disposition home or self-care (01) ==
LOC: C.LABMFLN 07:59
PROVIDERS: ATTEND Internal Medicine Endocrinology, Diabetes & Metabolism
DX: E05.90 Thyrotoxicosis, unspecified without thyrotoxic crisis or storm (principal); M81.0 Age-related osteoporosis without current pathological fracture

== ENCOUNTER → 2017-08-17 | Outpatient (CLI) | payer OTHER ==
[2017-08-17 13:23] LABS: CHOLESTEROL/HDL RATIO 2.9
== END | disposition home or self-care (01) ==
LOC: C.LABMFLN 08:29
PROVIDERS: ATTEND Family Medicine
DX: Z00.00 Encounter for general adult medical examination without abnormal findings (principal); E78.00 Pure hypercholesterolemia, unspecified

== ENCOUNTER → 2017-11-05 | Outpatient (CLI) | payer OTHER ==
[2017-11-05 13:06] LABS: CALCIUM 9.4 mg/dl (8.5-10.1)
[2017-11-05 13:21] LABS: ALBUMIN 3.7 gm/dl (3.4-5.0)
== END | disposition home or self-care (01) ==
LOC: C.LABMFLN 09:10
PROVIDERS: ATTEND Internal Medicine Endocrinology, Diabetes & Metabolism
DX: E05.90 Thyrotoxicosis, unspecified without thyrotoxic crisis or storm (principal); E04.2 Nontoxic multinodular goiter; E04.9 Nontoxic goiter, unspecified

== ENCOUNTER → 2017-11-16 | Outpatient (CLI) | payer OTHER | END | disposition home or self-care (01) | LOC: C.LABMFLN 10:05 | PROVIDERS: ATTEND Family Medicine | DX: I10 Essential (primary) hypertension (principal); E78.00 Pure hypercholesterolemia, unspecified ==

== ENCOUNTER → 2017-11-23 | Outpatient (CLI) | payer OTHER ==
[2017-11-23 13:02] LABS: BASO % 0.5 %; BASO ABS # 0.04 K/uL (0-0.2); EOS % 2.9 %; EOS ABS # 0.22 K/uL (0-0.5); HEMATOCRIT 44.7 % (37-47); HEMOGLOBIN 15.1 g/dL (12.0-16.0); IG# 0.03 K/uL (0.00-0.02); LYMPH % 30.9 %; LYMPH ABS # 2.36 K/uL (1.2-3.4); MEAN CELL VOLUME 88.9 fL (80-100); MEAN CORPUSCULAR HGB CONC 33.8 g/dl (32-36); MEAN PLATELET VOLUME 10.9 fL (7.4-10.4); MONO % 8.8 %; MONO ABS # 0.67 K/uL (0.11-0.59); NEUT % 56.5 %; NEUT ABS # 4.31 K/uL (1.4-6.5); PLATELET COUNT 308 K/uL (130-400); RED CELL DISTRIBUTION WIDTH CV 13.7 % (11.5-14.5); RED CELL DISTRIBUTION WIDTH SD 44.3 fL (36.4-46.3); WHITE BLOOD COUNT 7.63 K/uL (4.8-10.8)
== END | disposition home or self-care (01) ==
LOC: C.LABMFLN 11:05
PROVIDERS: ATTEND Family Medicine
DX: R23.8 Other skin changes (principal)

== ENCOUNTER → 2017-12-02 | Outpatient (CLI) | payer OTHER ==
--- NOTE | 2017-12-03 07:47 | MAMMOGRAPHY REPORT ---
BILATERAL DIGITAL SCREENING MAMMOGRAM TOMOSYNTHESIS WITH CAD: 12/02/2017 CLINICAL HISTORY: Routine screening. Patient has no complaints. TECHNIQUE: Breast tomosynthesis in addition to standard 2D mammography was performed. Current study was also evaluated with a Computer Aided Detection (CAD) system. COMPARISON: Comparison is made to exams dated: 11/22/2013 mammogram, 11/30/2012 mammogram, 11/17/2012 m ammogram, and 12/02/2017 mammogram. BREAST COMPOSITION: The tissue of both breasts is heterogeneously dense, which may obscure small mas ses. FINDINGS: There is a small 7 mm mass with associated calcifications as well as an another 9 mm mass w ith associated calcifications in the right upper outer quadrant, for which spot magnification views a nd possible breast ultrasound are recommended for further evaluation. Additionally, there is a small possible cluster of calcifications within the right central breast, for which spot magnification vie ws are also recommended. The remainder of both breasts are stable compared to prior exams, without suspicious masses, calcific ations, or areas of architectural distortion noted. Other scattered bilateral benign-appearing calci fications are again noted. IMPRESSION: ACR BI-RADS CATEGORY 0: INCOMPLETE EVALUATION: NEED ADDITIONAL IMAGING EVALUATION Right breast masses and calcifications, for which additional imaging evaluation is recommended. The patient will be called to schedule an appointment. Approximately 10% of breast cancers are not detected with mammography. A negative mammographic report should not delay biopsy if a clinically suggestive mass is present. Sheyla Biggs M.D. /:12/02/2017 16:25:47 Cook Specialty: Gretel ASHTON)(Kimmie), [facility] letter sent: Addl Imaging 0 BI-RADS Code: ACR BI-RADS Category 0: Incomplete Evaluation: Need Additional Imaging Evaluation
== END | disposition home or self-care (01) ==
LOC: C.MAMM 09:53
PROVIDERS: ATTEND Family Medicine
DX: Z12.31 Encounter for screening mammogram for malignant neoplasm of breast (principal); N63.10 Unspecified lump in the right breast, unspecified quadrant; R92.1 Mammographic calcification found on diagnostic imaging of breast

== ENCOUNTER → 2017-12-10 | Outpatient (CLI) | payer OTHER ==
--- NOTE | 2017-12-10 14:44 | MAMMOGRAPHY REPORT ---
UNILATERAL RIGHT DIGITAL DIAGNOSTIC MAMMOGRAM AND TARGETED RIGHT ULTRASOUND: 12/10/2017 CLINICAL HISTORY: Callback from screening mammogram for right breast calcifications/masses. TECHNIQUE: Spot magnification right cc and ML views were obtained. COMPARISON: Comparison is made to exams dated: 12/10/2017 mammogram, 12/02/2017 mammogram - [facility], 12/02/2017 mammogram, 11/30/2012 mammogram, and 11/17/2012 mammogram. BREAST COMPOSITION: The tissue of the right breast is heterogeneously dense, which may obscure small masses. FINDINGS: Spot magnification views demonstrate an oval 10 mm mass with associated coarse heterogeneou s calcifications within the right breast at approximately 11:00. The mass does not appear significan tly changed in size although the calcifications are increased. Another similar-appearing mass measur ing approximately 16 mm is also seen within the right lateral breast at approximately 9 to 10:00 whic h also contains coarse heterogeneous calcifications. The calcifications within this mass appears sli ghtly increased compared to the 2016 exam. Additionally, there is a small 6 mm cluster of calcificat ions in the right central breast which are amorphous and coarse heterogeneous and appear similar to t he other cluster calcifications in the right breast. Targeted ultrasound was performed of the right breast in the region of the mammographic masses. In t he right breast at 11:00, approximately 8 cm from the nipple, there is a slightly hypoechoic solid no n-circumscribed mass which measures 7 x 5 x 7 mm. Echogenic foci are seen within the mass, which cor respond with the mammographic calcifications. This corresponds with 1 of the masses and associated c alcifications seen mammographically. Another lobulated slightly hypoechoic solid mass is seen within the right breast at 9:00, 12 cm from the nipple, which measures 15 x 4 x 7 mm. A few echogenic foci are seen within this mass as well. This corresponds with the other mass and associated calcificatio ns seen mammographically. 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 However, giv en that the calcifications have increased within the mass, ultrasound-guided core needle biopsy of 1 of the masses is recommended for further evaluation, in particular the 11:00 mass given that this has the most calcifications within it. IMPRESSION: ACR BI-RADS CATEGORY 4: SUSPICIOUS, TARGETED ULTRASOUND ACR BI-RADS CATEGORY 4: SUSPICIO US 1. Hypoechoic 7 mm mass in the right 11:00 breast on ultrasound, which contains coarse heterogeneous calcifications which have increased compared to prior exams. While the mass may represent a degener ating fibroadenoma, it is indeterminate and ultrasound-guided core needle biopsy with specimen radiog deepthi is recommended for further evaluation. 2. Pending benign pathology results, recommend follow-up diagnostic tomosynthesis mammograms and pos sible ultrasound of the right breast in 6 months to confirm stability of a similar appearing mass and calcifications in the right 9:00 breast and a small cluster of calcifications in the right central b reast which likely also represent degenerating fibroadenomas. A phone call was made to the physician's office to confirm faxed results were received. The patient has been verbally notified of the results. She tentatively scheduled the biopsy before leaving the [facility]. Approximately 10% of breast cancers are not detected with mammography. A negative mammographic report should not delay biopsy if a clinically suggestive mass is present. Sheyla Biggs M.D. ah/:12/10/2017 11:53:47 Head Turning Machine Operator: Temi CANTU(Omar)(Kimmie), [facility] letter sent: Abnormal 4/5 BI-RADS Code: ACR BI-RADS Category 4: Suspicious Ultrasound BI-RADS: ACR BI-RADS Category 4: Suspici ous
== END | disposition home or self-care (01) ==
LOC: C.MAMM 11:09
PROVIDERS: ATTEND Family Medicine
DX: N63.10 Unspecified lump in the right breast, unspecified quadrant (principal)

== ENCOUNTER → 2017-12-18 | Outpatient (CLI) | payer OTHER ==
--- NOTE | 2017-12-18 10:27 | Discharge Instructions ---
Discharge Instructions Procedure Procedure Date: Dec 18, 2017. Reason for visit: Right Mass/Calcs. Discharge Discharge Date: Dec 18, 2017. Discharge Diagnosis: status post breast biopsy Instructions Activity Recommendations: Additional Limitations (see below) Return to School/Work: no limitations Recommended Home Diet: No Limitations Provider Instructions: ACTIVITY RECOMMENDATIONS: * No lifting, pushing, pulling or exercising the affected side for three days. RETURN TO SCHOOL/WORK: * You may return to work/school after the procedure, but do not perform any strenuous activities for 24 to 48 hours. MEDICATIONS: * Tylenol (two 325 mg) every four to six hours if needed for mild pain (if not allergic to Tylenol). DIET: * Resume previous diet. SPECIAL CARE INSTRUCTIONS: * Keep biopsy site dry for 24 hours. May shower after 24 hours, but do not soak (bathe) incision. * May remove Tegaderm (plastic patch) tomorrow AFTER showering. * Leave the steri-strips on for one week. Allow the steri-strips to fall off by themselves. If not off after one week, you may remove them. You may place a Bandaid crosswise over the strips, if desired. * Apply ice 10 minutes on and 10 minutes off as needed. * Wear a bra at bedtime to sleep more comfortably for 2-3 days. * Your referring physician should have the results after approximately 5 to 7 business days. * Call for unusual bleeding, fever, drainage, etc or if you have any questions call during normal business hours or after hours call Dr Biggs, . FOLLOW UP VISIT: Follow-up with Referring Physician as scheduled. Allergies Coded Allergies: Adhesives (Verified Allergy, Intermediate, pruritis, redness, rash, ) Influenza Vaccines (Verified Allergy, Unknown, per records , 02/25/17) NSAIDs (Verified Allergy, Unknown, porphyria, 02/25/17) Statins (Verified Adverse Reaction, Mild, MUSCLE ACHES,, 02/25/17) Timur Erwin Recommendations: Call your doctor if: * Temperature above 101 degrees * Pain not relieved by pain medicine ordered * There is increased drainage or redness from any incision * You have any unanswered questions or concerns. Your Doctors Instructions noted above were prepared by provider Sheyla Biggs. Patient Signature Section: Patient Instructions Signature Page Peggy Choudhury Patient (or Guardian) Signature/Date: I have read and understand the instructions given to me by my caregivers. Caregiver/RN/Doctor Signature/Date: The above-named patient and/or guardian has received patient instructions on this date. + Original Patient Signature Page (only) stays with chart. Please make copy for patient.
--- NOTE | 2017-12-21 07:43 | MAMMOGRAPHY REPORT ---
ULTRASOUND GUIDED BIOPSY RIGHT BREAST: 12/18/2017 CLINICAL HISTORY: Right 11:00 breast mass with associated calcifications. PATIENT CONSENT: The procedure, risks and benefits were discussed with the patient and informed writt en consent was obtained. A timeout was performed immediately prior to the procedure. PROCEDURE DESCRIPTION: With ultrasound guidance, aseptic technique, and lidocaine as the local anesth etic (1% lidocaine to anesthetize the skin and 1% lidocaine with epinephrine to anesthetize the deepe r tissues), the mass of concern in the right 11:00 breast was sampled 4 times with a 14-gauge Achieve biopsy needle. Immediately thereafter, with ultrasound guidance, aseptic technique, and lidocaine a s the local anesthetic, a metallic localizer clip was placed centrally in the mass. Direct pressure was applied to the site immediately post procedure and hemostasis was achieved. Postprocedure unilat eral mammograms were performed to confirm placement of the clip in the expected location of the breas t mass. A specimen radiograph was also performed which shows calcifications to be present within the samples. The patient tolerated the procedure without complication. She was given wound care instru ctions. The specimens were sent to pathology for analysis. COMPARISON: Comparison is made to exams dated: 12/10/2017 mammogram, 12/10/2017 ultrasound, 12/02/2017 ma mmogram - [facility], 12/02/2017 mammogram, 11/22/2013 mammogram, and 11/30/2012 mammo gram. IMPRESSION: ULTRASOUND GUIDED BIOPSY Ultrasound-guided core needle biopsy of the mass and associated calcifications in the right 11:00 alicia ast, with clip placement. The patient will receive pathology results from her referring provider. P ending benign pathology results, recommend follow-up diagnostic tomosynthesis mammograms and possible ultrasound of the right breast in 6 months to reevaluate other findings described on the recent diag nostic report. Sheyla Biggs M.D. /:12/18/2017 12:23:46 Body Make Up Artist: Lottie Oliveira, [facility]
--- NOTE | 2017-12-21 07:46 | MAMMOGRAPHY REPORT ---
UNILATERAL RIGHT DIGITAL DIAGNOSTIC MAMMOGRAM: 12/18/2017 CLINICAL HISTORY: Status post right breast biopsy. TECHNIQUE: Postprocedural right CC and ML views were obtained. COMPARISON: Comparison is made to exams dated: 12/10/2017 mammogram, 12/10/2017 ultrasound, 12/02/2017 ma mmogram - [facility], 12/02/2017 mammogram, 11/22/2013 mammogram, and 11/30/2012 mammo gram. BREAST COMPOSITION: The tissue of the right breast is heterogeneously dense, which may obscure small masses. FINDINGS: A new biopsy marker clip is seen at the site of the biopsied mass and calcifications in the right 11:00 breast. No significant postbiopsy hematoma is seen. IMPRESSION: POST PROCEDURE IMAGING FOR MARKER PLACEMENT New biopsy marker clip status post right breast biopsy. Pathology results are pending. Pending jaden petersen pathology results, recommend follow-up mammograms and possible ultrasound of the right breast in 6 months. Approximately 10% of breast cancers are not detected with mammography. A negative mammographic report should not delay biopsy if a clinically suggestive mass is present. Sheyla Biggs M.D. /:12/18/2017 12:24:56 Varnishing Machine Operator: Lottie Oliveira, [facility] BI-RADS Code: Post Procedure Imaging For Marker Placement
== END | disposition home or self-care (01) ==
LOC: C.MAMM 09:18
PROVIDERS: ATTEND Family Medicine
DX: N63.10 Unspecified lump in the right breast, unspecified quadrant (principal); R92.0 Mammographic microcalcification found on diagnostic imaging of breast; D24.1 Benign neoplasm of right breast

== ENCOUNTER → 2018-03-25 | Outpatient (CLI) | payer OTHER | END | disposition home or self-care (01) | LOC: C.MAMM 09:51 | PROVIDERS: ATTEND Family Medicine | DX: M81.0 Age-related osteoporosis without current pathological fracture (principal); M85.89 Other specified disorders of bone density and structure, multiple sites ==